=== PATIENT | male | born 1955 | race Caucasian/White ===

== ENCOUNTER → 2017-04-20 | Outpatient (CLI) | payer BC ==
--- NOTE | 2017-04-20 14:49 | DIAGNOSTIC IMAGING REPORT ---
LEFT HAND MIN 3 VIEWS CLINICAL HISTORY: SQUIRED BILATERAL HAND DEFORMITY pain COMPARISON: None. DISCUSSION: Moderate degenerative change of the interphalangeal joints throughout as well as metacarpophalangeal joints. No evidence for fracture. No abnormal periosteal reaction. Several marginal erosions. There is no evidence for soft tissue swelling. IMPRESSION: Moderate degenerative change of the interphalangeal as well as metacarpal phalangeal joints. No acute bony pathology. The above report was generated using voice recognition software. It may contain grammatical, syntax or spelling errors. Electronically signed by: Raymond Cook M.D. 04/20/2017 2:48 PM Dictated Date/Time: 04/20/2017 2:45 PM
--- NOTE | 2017-04-20 14:49 | DIAGNOSTIC IMAGING REPORT ---
RIGHT HAND MIN 3 VIEWS CLINICAL HISTORY: Acquired hand deformity. COMPARISON: None. DISCUSSION: No acute fractures are visualized. There are no erosive or destructive changes. 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 IMPRESSION: 1. No acute fractures 2. Boutonniere deformity of the fifth finger Electronically signed by: Samuel Panda M.D. 04/20/2017 2:48 PM Dictated Date/Time: 04/20/2017 2:45 PM
== END | disposition home or self-care (01) ==
LOC: C.RDSM 12:18
PROVIDERS: ATTEND Internal Medicine
DX: M21.941 Unspecified acquired deformity of hand, right hand (principal)